=== PATIENT | male | born 1995 | race Caucasian/White ===

== ENCOUNTER 2018-08-03 22:49 | Emergency (ER) | payer SELFPAY ==
[~2018-08-03] VITALS: Ht 182.9 cm; Wt 86.4 kg
[2018-08-04 01:04] VITALS: BP 167/87; PULSE 98; TEMP 98.4
== END 2018-08-04 01:09 | disposition home or self-care (01) ==
LOC: COL.ER 22:49
DX: S01.81XA Laceration without foreign body of other part of head, initial encounter (principal); Z98.890 Other specified postprocedural states; W51.XXXA Accidental striking against or bumped into by another person, initial encounter; Y93.61 Activity, american tackle football; Y92.838 Other recreation area as the place of occurrence of the external cause